=== PATIENT | male | born 1995 | race Caucasian/White ===

== ENCOUNTER 2019-02-13 11:54 | Day surgery (SDC) | payer OTHER ==
[~2019-02-13] VITALS: Ht 160 cm; Wt 49.7 kg
[~2019-02-13 11:54] MED LIST: DOCU-144 PO; OXYC-279 PO
[2019-02-13 12:00] VITALS: Ht 160 cm; Wt 49.7 kg
[2019-02-14 07:21] VITALS: BP 119/58; PULSE 78; RESP 18
== END 2019-02-14 12:25 | disposition home or self-care (01) ==
LOC: FTE 11:54 → MS1 15:34 → UNDOADMIN 15:34 → SDS 15:48 → MS1 15:48 → SDS 02-14 12:25
PROVIDERS: ATTEND Internal Medicine
DX: K35.80 Unspecified acute appendicitis (principal)
CPT/HCPCS: 36415; 44970; 74176; 80053; 81003; 83690; 83735; 85025; 96361; 96365; 96375; J1170; J1885; J2175; J2270; J2405; J2543; J3475; J3480; J7030; J7042; Z7502; Z7512; Z7610; 88304; J1100; J1650; J2250; J2765; J2795; J3010